=== PATIENT | female | born 1955 | race Caucasian/White ===

== ENCOUNTER → 2016-11-12 | Outpatient (CLI) | payer OTHER, BC ==
[~2016-11-12] MED LIST: HYDR1TAB PO; METH4TAB PO
--- OUTSIDE RECORDS SUMMARY | 2016-11-12 16:12 | XMS REPORT ---
Author Author TAYLOR JAMA [facility] eClinicalWorks Address Unknown Phone Unavailable Care Team Providers Care Manager Electrical Name Role Phone TAYLOR JAMA CP Unavailable Allergies No Known Allergies Problems Problem Type Condition Code Onset Dates Condition Status Assessment Encounter for immunization Z23 Active Problem ZOSTAVAX DX V05.8 Active Problem Impetigo 684 Active Problem Contact dermatitis and other eczema, due to unspecified cause 692.9 Active Problem Need for prophylactic vaccination and inoculation, Influenza V04.81 Active Problem DTAP TEST V06.1 Active Problem Dysfunction of Eustachian tube 381.81 Active Problem Obstructive chronic bronchitis, with (acute) exacerbation 491.21 Active Medications No Known Medications Procedures Procedure Coding System Code Date SINGLE IMMUNIZATION ADMIN CPT-4 59362 Jul 11, 2016 FLUARIX QUAD P-FREE 3 AND UP .50 2015 CPT-4 81100 Jul 11, 2016 Results No Known Results Immunizations Vaccine Administration Date FLUARIX QUAD P-FREE 3 AND UP .50 2015Jul 11, 2016 Summary Purpose eClinicalWorks Submission
--- NOTE | 2016-11-12 16:35 | Diagnostic Imaging Report ---
Left shoulder INDICATION: Injury, shoulder pain. Three views were obtained. FINDINGS: There is no fracture, dislocation, or acute bony abnormality evident. There is moderate degenerative disease of the acromioclavicular joint and the glenohumeral joint. There is also mild sclerosis of the greater tuberosity of the humerus. The soft tissues are unremarkable. IMPRESSION: 1. There is no evidence for an acute bony abnormality. 2. If there is clinical concern regarding an injury to the rotator cuff or labrum, then MRI should be considered for further study. Dictated by: Dictated on workstation # [id number]
== END ==
LOC: RAD 16:08
PROVIDERS: ATTEND Family Medicine
DX: M25.512 Pain in left shoulder (principal)
CPT/HCPCS: 73030

== ENCOUNTER 2017-02-06 16:26 | Outpatient (RCR) | payer OTHER, BC | END 2017-02-23 | disposition home or self-care (01) | PROVIDERS: ATTEND Family Medicine | DX: M25.512 Pain in left shoulder (principal); V87.7XXA Person injured in collision between other specified motor vehicles (traffic), initial encounter; Y99.8 Other external cause status ==

== ENCOUNTER 2017-12-14 17:03 | Emergency (ER) | payer BC ==
[~2017-12-14] VITALS: Ht 172.7 cm; Wt 95.3 kg
--- OUTSIDE RECORDS SUMMARY | 2017-12-14 17:09 | XMS REPORT ---
Author Author TAYLOR JAMA [facility] eClinicalWorks Address Unknown Phone Unavailable Care Team Providers Care Patient Experience Coordinator Name Role Phone TAYLOR JAMA CP Unavailable Allergies No Known Allergies Problems Problem Type Condition Code Onset Dates Condition Status Assessment Need for Tdap vaccination Z23 Active Problem ZOSTAVAX DX V05.8 Active [...] System Code Date SINGLE IMMUNIZATION ADMIN CPT-4 69435 Aug 08, 2015 TDAP (BOOSTRIX) CPT-4 35479 Aug 08, 2015 Results No Known Results Immunizations Vaccine Administration Date TDAP (BOOSTRIX) Aug 08, 2015 Summary Purpose eClinicalWorks Submission
--- OUTSIDE RECORDS SUMMARY | 2017-12-14 17:09 | XMS REPORT ---
Author Author TAYLOR JAMA Organization eClinicalWorks Address Unknown Phone Unavailable Care Team Providers Care Basketball Commentator Name Role Phone TAYLOR JAMA CP Unavailable Allergies No Known Allergies Problems Problem Type Condition Code Onset Dates Condition Status Problem ZOSTAVAX DX V05.8 Active Problem Impetigo 684 Active Problem Contact dermatitis and other eczema, due to unspecified cause 692.9 Active Problem Need for prophylactic vaccination and inoculation, Influenza V04.81 Active Problem DTAP TEST V06.1 Active Problem Dysfunction of Eustachian tube 381.81 Active Problem Obstructive chronic bronchitis, with (acute) exacerbation 491.21 Active Medications No Known Medications Results No Known Results Summary Purpose eClinicalWorks Submission
--- OUTSIDE RECORDS SUMMARY | 2017-12-14 17:09 | XMS REPORT ---
Author Author JENNIFER WALLACE [facility] Address [address] [place] [address] Care Team Providers Care Service Superintendent Name Role Phone JENNIFER WALLACE Unavailable PROBLEMS Type Condition ICD9-CM Code KOO27-PH Code Onset Dates Condition Status SNOMED Code Problem Obstructive chronic bronchitis, with (acute) exacerbation 491.21 Active 014971538 ALLERGIES Substance Reaction Event Type Date Status N.K.D.A. Unknown Non Drug Allergy Oct, Unknown SOCIAL HISTORY No smoking Hx information available PLAN OF CARE VITAL SIGNS MEDICATIONS Unknown Medications RESULTS No Results PROCEDURES No Known procedures IMMUNIZATIONS No Known Immunizations
--- OUTSIDE RECORDS SUMMARY | 2017-12-14 17:09 | XMS REPORT ---
Author Author TAYLOR JAMA [facility] eClinicalWorks Address Unknown Phone Unavailable Care Team Providers Care Principal Architectural Firm Name Role Phone TAYLOR JAMA Unavailable Allergies No Known Allergies Problems Problem [...] System Code Date SINGLE IMMUNIZATION ADMIN CPT-4 45003 Jul 25, 2015 FLUARIX QUAD (3 & UP)-GSK-2014 CPT-4 16622 Jul 25, 2015 Results No Known Results Immunizations Vaccine Administration Date FLUARIX QUAD (3 & UP)-GSK-2014Jul 25, 2015 Summary Purpose eClinicalWorks Submission
--- OUTSIDE RECORDS SUMMARY | 2017-12-14 17:09 | XMS REPORT ---
Author Author JC ERVIN Organization [facility] Address [address] [place] [address] Care Team Providers Care Physics Department Chair Name Role Phone HANG ERVINNETTE Unavailable PROBLEMS Type Condition ICD9-CM Code [id number] Code Onset Dates Condition Status SNOMED Code Problem Obstructive chronic bronchitis, with (acute) exacerbation 491.21 Active [id number] ALLERGIES Substance Reaction Event Type Date Status N.K.D.A. Unknown Non Drug Allergy Jul, Unknown SOCIAL HISTORY No smoking Hx information available PLAN OF CARE Activity Details Follow Up 1 Week, prn Reason:ankle pain VITAL SIGNS Height 68 in 2016-07-20 Weight 215 lbs 2016-07-20 Temperature 98.2 degrees Fahrenheit 2016-07-20 Heart Rate 84 bpm 2016-07-20 Respiratory Rate 18 2016-07-20 BMI 32.69 kg/m2 2016-07-20 Blood pressure systolic 124 mmHg 2016-07-20 Blood pressure diastolic 70 mmHg 2016-07-20 MEDICATIONS Unknown Medications RESULTS Name Result Date Reference Range Xray : Ankle, Left, 3 views (IN HOUSE) 2016-07-20 PROCEDURES Procedure Date Ordered Related Diagnosis Body Site X-RAY EXAM OF ANKLE Jul 20, 2016 Office Visit, Est Pt., Level 3 Jul 20, 2016 IMMUNIZATIONS No Known Immunizations
--- OUTSIDE RECORDS SUMMARY | 2017-12-14 17:09 | XMS REPORT ---
Author Author TAYLOR JAMA [facility] Address [address] [place] [address] Care Team Providers Care Electroplating Sales Representative Name Role Phone PITO JAMAYL Unavailable PROBLEMS Type Condition ICD9-CM Code [id number] Code Onset Dates Condition Status SNOMED Code Problem Obstructive chronic bronchitis, with (acute) exacerbation 491.21 Active 161451828 Assessment Acute non-recurrent maxillary sinusitis J01.00 Sep, Active 87949184 Assessment Bronchitis J40 Sep, Active 20534036 ALLERGIES Substance Reaction Event Type Date Status N.K.D.A. Unknown Non Drug Allergy Sep, Unknown SOCIAL HISTORY No smoking Hx information available PLAN OF CARE VITAL SIGNS Height 68 in 2016-09-19 Weight 212.8 lbs 2016-09-19 Heart Rate 83 bpm 2016-09-19 Respiratory Rate 16 2016-09-19 BMI 32.35 kg/m2 2016-09-19 Blood pressure systolic 111 mmHg 2016-09-19 Blood pressure diastolic 64 mmHg 2016-09-19 MEDICATIONS Medication Instructions Dosage Frequency Start Date End Date Duration Status Bactrim DS 800-160 MG Orally Twice a day 1 tablet 12h Sep,Sep 10 day(s) Active Triamcinolone Acetonide 0.1 % Externally Twice a day 1 application to affected area 12h Mar, Active Advair HFA 115-21 MCG/ACT Inhalation Twice a day Rinse mouth after use 2 puffs Sep, 10 days Active PredniSONE 10 mg Orally as directed 6 tabs first 2 days, then 5 tabs next 2 days, then 4 tabs x 2 days, 3 tabs x 2 days, 2 tabs x 2 days, 1 tab x2 days Mar, Active RESULTS No Results PROCEDURES Procedure Date Ordered Related Diagnosis Body Site DEPO MEDROL 80 MG/ML Sep 19, 2016 THER/PROPH/DIAG INJ, SC/IM Sep 19, 2016 Office Visit, Est Pt., Level 3 Sep 19, 2016 IMMUNIZATIONS Vaccine Route Administration Date Status DEPO MEDROL 80 MG/ML IM Intramuscular Sep 19, 2016 Administered
--- OUTSIDE RECORDS SUMMARY | 2017-12-14 17:09 | XMS REPORT ---
Author Author TAYLOR JAMA [facility] eClinicalWorks Address Unknown Phone Unavailable Care Team Providers Care Custodial Maintenance Worker Name Role Phone TAYLOR JAMA CP Unavailable [...] System Code Date SINGLE IMMUNIZATION ADMIN CPT-4 61009 Jul 11, 2016 FLUARIX QUAD P-FREE 3 AND UP .50 2015 CPT-4 44269 Jul 11, 2016 Results No Known Results Immunizations Vaccine Administration Date FLUARIX QUAD P-FREE 3 AND UP .50 2015Jul 11, 2016 Summary Purpose eClinicalWorks Submission
--- OUTSIDE RECORDS SUMMARY | 2017-12-14 17:09 | XMS REPORT ---
Author Author SRIDEVI PAGE Organization eClinicalWorks Address Unknown Phone Unavailable Care Team Providers Care Floor Worker [place] Name Role Phone SRIDEVI PAGE CP Unavailable Allergies, Adverse Reactions, Alerts Substance Reaction Event Type N.K.D.A. Info Not Available Non Drug Allergy Problems Problem Type Condition Code Onset Dates Condition Status Assessment Shingles B02.9 Active Problem ZOSTAVAX DX V05.8 Active Problem Impetigo 684 Active Problem Contact dermatitis and other eczema, due to unspecified cause 692.9 Active Problem Need for prophylactic vaccination and inoculation, Influenza V04.81 Active Problem DTAP TEST V06.1 Active Problem Dysfunction of Eustachian tube 381.81 Active Problem Obstructive chronic bronchitis, with (acute) exacerbation 491.21 Active Medications Medication Code System Code Instructions Start Date End Date Status Dosage Nasonex [facility] [address]-12 50 MCG/ACT Nasally Once a day Dec 15, 2015 2 sprays in each nostril Acyclovir [facility] [address]-20 800 MG Orally 5 times per day February 02, 2016 1 tablet Mucinex [facility] [address]-25 600 mg December 26, 2014 1-2 tablet by Oral route every 12 hours PRN with plenty of water Procedures Procedure Coding System Code Date Office Visit, Est Pt., Level 3 CPT-4 98555 February 02, 2016 Vital Signs Date/Time: February 02, 2016 Temperature 97.9 F Weight 215.8 lbs Height 68 in BMI 32.81 Index Blood Pressure Diastolic 84 mmHg Blood Pressure Systolic 112 mmHg Cardiac Monitoring Heart Rate 80 bpm Results No Known Results Summary Purpose eClinicalWorks Submission
--- OUTSIDE RECORDS SUMMARY | 2017-12-14 17:10 | XMS REPORT | Continuity of Care Document ---
Author Author [facility] Address Unknown Phone Unavailable Allergies There is no data. Medications There is no data. Problems Date Dx Coded Attending Type Code Diagnosis Diagnosed By 08/27/2010 RAJOTTE CUT IN STATION OPERATOR, TAYLOR A 461.9 SINUSITIS ACUTE 08/27/2010 RAJOTTE CUT IN STATION OPERATOR, TAYLOR A 786.2 COUGH 08/27/2010 461.9 SINUSITIS ACUTE 08/27/2010 786.2 COUGH 08/27/2010 YISEL DELEON TERRI S 461.9 SINUSITIS ACUTE 08/27/2010 YISEL CUT IN STATION OPERATOR, TERRI S 786.2 COUGH 08/27/2010 RAJOTTE CUT IN STATION OPERATOR, TAYLOR A 461.9 SINUSITIS ACUTE 08/27/2010 RAJOTTE CUT IN STATION OPERATOR, TAYLOR A 786.2 COUGH 12/03/2010 RAJOTTE CUT IN STATION OPERATOR, TAYLOR A 465.9 UPPER RESPIRATORY INFECTION 12/03/2010 465.9 UPPER RESPIRATORY INFECTION 12/03/2010 YISEL DELEON TERRI S 465.9 UPPER RESPIRATORY INFECTION 12/03/2010 RAJOTTE CUT IN STATION OPERATOR, TAYLOR A 465.9 UPPER RESPIRATORY INFECTION 02/20/2011 RAJOTTE CUT IN STATION OPERATOR, TAYLOR A 466.0 ACUTE BRONCHITIS 02/20/2011 466.0 ACUTE BRONCHITIS 02/20/2011 CATHERINE MORILLO APRNNDA S 466.0 ACUTE BRONCHITIS 02/20/2011 RAJOTTE CUT IN STATION OPERATOR, TAYLOR A 466.0 ACUTE BRONCHITIS 04/22/2011 RAJOTTE CUT IN STATION OPERATOR, TAYLOR A 692.6 CONTACT DERMATITIS AND OTHER ECZEMA DUE TO PLANTS (EXCEPT FOOD) 04/22/2011 692.6 CONTACT DERMATITIS AND OTHER ECZEMA DUE TO PLANTS (EXCEPT FOOD) 04/22/2011 CATHERINE MORILLO APRNNDA S 692.6 CONTACT DERMATITIS AND OTHER ECZEMA DUE TO PLANTS (EXCEPT FOOD) 04/22/2011 RAJOTTE CUT IN STATION OPERATOR, TAYLOR A 692.6 CONTACT DERMATITIS AND OTHER ECZEMA DUE TO PLANTS (EXCEPT FOOD) 05/29/2011 EVITA DELEON TAYLOR A V70.0 GENERAL MEDICAL EXAM, ROUTINE, AT HEALTH CARE FACILITY 05/29/2011 V70.0 GENERAL MEDICAL EXAM, ROUTINE, AT HEALTH CARE FACILITY 05/29/2011 TERRI MORILLO APRN S V70.0 GENERAL MEDICAL EXAM, ROUTINE, AT HEALTH CARE FACILITY 05/29/2011 TAYLOR JAMA APRN A V70.0 GENERAL MEDICAL EXAM, ROUTINE, AT HEALTH CARE FACILITY 05/30/2011 EVITA DELEON TAYLOR A 272.4 HYPERLIPIDEMIA 05/30/2011 272.4 HYPERLIPIDEMIA 05/30/2011 TERRI MORILLO APRN S 272.4 HYPERLIPIDEMIA 05/30/2011 EVITA DELEON TAYLOR A 272.4 HYPERLIPIDEMIA 02/18/2012 EVITA DELEON TAYLOR A 692.9 DERMATITIS CONTACT UNSPECIFIED 02/18/2012 692.9 DERMATITIS CONTACT UNSPECIFIED 02/18/2012 TERRI MORILLO APRN S 692.9 DERMATITIS CONTACT UNSPECIFIED 02/18/2012 EVITA DELEON TAYLOR A 692.9 DERMATITIS CONTACT UNSPECIFIED 08/16/2012 EVITA DELEON TAYLOR A V04.81 FLU DX (3 YRS AND ABOVE, IM) 08/16/2012 EVITA DELEON TAYLOR A V06.1 TDAP DX 08/16/2012 V04.81 FLU DX (3 YRS AND ABOVE, IM) 08/16/2012 V06.1 TDAP DX 08/16/2012 TERRI MORILLO APRN S V04.81 FLU DX (3 YRS AND ABOVE, IM) 08/16/2012 JUAN MORILLO APRNA S V06.1 TDAP DX 08/16/2012 NELLIESAMARA DELEON TAYLOR A V04.81 FLU DX (3 YRS AND ABOVE, IM) 08/16/2012 EVITA DELEON TAYLOR A V06.1 TDAP DX 09/06/2012 EVITA DELEON TAYLOR A 491.21 BRONCHITIS AECB 09/06/2012 491.21 BRONCHITIS AECB 09/06/2012 TERRI MORILLO APRN S 491.21 BRONCHITIS AECB 09/06/2012 RAJTAYLOR PASCUAL APRN 491.21 BRONCHITIS AECB 09/20/2012 TAYLOR JAMA APRN V05.8 ZOSTAVAX DX 09/20/2012 V05.8 ZOSTAVAX DX 09/20/2012 TERRI MORILLO APRN V05.8 ZOSTAVAX DX 09/20/2012 TAYLOR JAMA APRN V05.8 ZOSTAVAX DX 09/27/2013 TERRI MORILLO APRN 684 IMPETIGO 09/27/2013 TAYLOR JAMA APRN 684 IMPETIGO Procedures Code [place] [address] NEBULIZER TREATMENT 11/26/2012 41120 OXIMETRY 11/26/2012 J7613 ALBUTEROL UNIT DOSE FORM INHALED 11/26/2012 Results There is no data. Encounters ACCT No. Visit Date/Time Discharge Status Pt. Type Provider Facility Loc./Unit Complaint [id number] 08/04/2014 12:29:00 08/04/2014 23:59:59 CLS Outpatient TAYLOR JAMA APRN [id number] 09/27/2013 11:04:00 09/27/2013 23:59:59 CLS Outpatient TERRI MORILLO APRN [id number] 11/26/2012 11:24:00 11/26/2012 23:59:59 CLS Outpatient [id number] 09/06/2012 15:02:00 09/06/2012 23:59:59 CLS Outpatient TAYLOR JAMA APRN
--- NOTE | 2017-12-14 17:51 | ED Lower Extremity ---
General Chief Complaint: Lower Extremity Stated Complaint: LEFT KNEE INJ Nursing Triage Note: PT TO ED W/ C/O LT KNEE PAIN, CHRONIC, WORSE TODAY AFTER TWISTING KNEE WHILE THROWING OUT TRASH AT SCHOOL. Nursing Sepsis Screen: No Definite Risk Source: patient Exam Limitations: no limitations History of Present Illness Date Seen by Provider: Dec 14, 2017 Time Seen by Provider: 17:50 Initial Comments To ER with some chronic right knee pain. However today while at school she was taking out the trash and twisted wrong sudden onset of severe left knee pain that prohibits her from bearing weight on it. She is unable to fully extend the knee. She does not now or at any time that she can recall have deformity to the knee. She does not have a primary care provider since Dr. Fonseca left. She works at [employer] and does see Rizwana Andrews from the [employer] [facility]anch Onset: this afternoon Severity: moderate Pain/Injury Location: left leg Method of Injury: twisted Modifying Factors: Worse With Movement Allergies and Home Medications Allergies Coded Allergies: No Known Drug Allergies (Unverified , 02/21/12) Home Medications Hydrocodone Bit/Acetaminophen 1 Each Tablet, 1 EACH PO Q4HR PRN Prescribed by: DARCY JHAVERI MD on 02/21/122137 Constitutional: see HPI EENTM: see HPI Respiratory: no symptoms reported Cardiovascular: no symptoms reported Genitourinary: no symptoms reported Musculoskeletal: see HPI Skin: no symptoms reported Psychiatric/Neurological: No Symptoms Reported Past Ijzwlun-Vnkbvn-Qpeeqf Hx Patient Social History Alcohol Use: Denies Use Recreational Drug Use: No Smoking Status: Never a Smoker Recent Foreign Travel: No Contact w/Someone Who Travel: No Recent Infectious Disease Expo: No Immunizations Up To Date Date of Influenza Vaccine: Jul 31, 2011 Surgeries History of Surgeries: No Respiratory History of Respiratory Disorde: No Cardiovascular History of Cardiac Disorders: No Neurological History of Neurological Disord: No Genitourinary History of Genitourinary Disor: No Gastrointestinal History of Gastrointestinal Di: No Musculoskeletal History of Musculoskeletal Dis: No Endocrine History of Endocrine Disorders: No HEENT History of HEENT Disorders: No Cancer History of Cancer: No Psychosocial History of Psychiatric Problem: No Integumentary History of Skin or Integumenta: No Blood Transfusions History of Blood Disorders: No Physical Exam Vital Signs Vital Signs - First Documented 12/14/17 17:33 Temp 97.9 Pulse 93 Resp 20 B/P (MAP) 140/112 (121) Pulse Ox 99 Capillary Refill : Less Than 3 Seconds General Appearance: WD/WN, no apparent distress HEENT: PERRL/EOMI, normal ENT inspection Neck: non-tender, full range of motion Respiratory: normal breath sounds, no respiratory distress, no accessory muscle use Gastrointestinal: normal bowel sounds, non tender Hips: bilateral hip non-tender, bilateral hip normal inspection, bilateral hip normal range of motion Legs: bilateral leg non-tender, bilateral leg normal inspection, bilateral leg normal range of motion Knees: left knee pain, left knee other (limited range of motion but without erythema ecchymosis or deformity) Ankles: bilateral ankle non-tender, bilateral ankle normal inspection, bilateral ankle normal range of motion Feet: bilateral foot non-tender, bilateral foot normal inspection, bilateral foot normal range of motion Neurologic/Psychiatric: alert, normal mood/affect, oriented x 3 Skin: normal color, warm/dry Progress/Results/Core Measures Results/Orders My Orders Orders - PAULA ORTEGA APRN Knee, Left, 3 Views (12/14/17 17:36) Hydrocodone/Apap 5/325 Tablet (Lortab 5 (12/14/17 18:45) Immobilizer Knee St 19 Inch (12/14/17 18:35) Vital Signs/I&O Vital Sign - Last 12Hours 12/14/17 17:33 Temp 97.9 Pulse 93 Resp 20 B/P (MAP) 140/112 (121) Pulse Ox 99 Blood Pressure Mean: 121 Departure Impression Impression: Primary Impression: Internal derangement of knee Disposition: 01 HOME, SELF-CARE Condition: Stable Departure-Patient Inst. Decision time for Depature: 18:36 Referrals: JOESPH CHIRINOS MD (PCP) Primary Care Physician Patient Instructions: Internal Derangement of the Knee Add. Discharge Instructions: 1. Wear the knee immobilizer when you're up putting weight on the leg. Motrin or naproxen in addition to the prescribed pain medication for pain control. All discharge instructions reviewed with patient and/or family. Voiced understanding. Scripts Hydrocodone/Acetaminophen ([place] [employer] 5-325 Tablet) 1 Each Tablet 1 EACH PO Q4H Y for PAIN-MODERATE TO SEVERE, #14 TAB Prov: PAULA ORTEGA APRN 12/14/17 Work/School Note: Work Release Form Date Seen in the Emergency Department: Dec 14, 2017 Return to Work: Dec 14, 2017 Other Restrictions Listed Below: May use wheelchair or crutches for one week Copy Copies To 1: BRITTANI FREEMAN PETER J APRN Dec 14, 2017 17:51
--- NOTE | 2017-12-14 18:25 | Diagnostic Imaging Report ---
EXAMINATION: Left knee radiographs, 3 views. COMPARISON: None. HISTORY: 62-year-old female, twisting injury of left knee. Left knee pain. FINDINGS: There is no identified knee joint effusion. There is very mild degenerative type enthesophyte formation at the insertion of the distal quadriceps tendon. The joint spaces appear well preserved. There is no prominent osteophyte formation. There is no identified acute fracture or dislocation. There is no identified radiopaque foreign body. IMPRESSION: 1. No identified acute bony abnormality of the left knee. 2. Mild degenerative type enthesopathy at the distal quadriceps tendon insertion. Dictated by: Dictated on workstation # [id number]
[2017-12-14] MEDS ORDERED: HYDR-757 PO (18:38)
[2017-12-14 18:42] VITALS: BP 120/85
[2017-12-14] MEDS ORDERED: HYDROcodone/APAP 5 MG/325 MG (LORTAB) TAB PO ONE (18:45)
== END 2017-12-14 18:52 | disposition home or self-care (01) ==
LOC: EDUNIT# 17:03 → ER 17:05
DX: M23.92 Unspecified internal derangement of left knee (principal); X50.0XXA Overexertion from strenuous movement or load, initial encounter; Y92.219 Unspecified school as the place of occurrence of the external cause
CPT/HCPCS: 73562

== ENCOUNTER → 2017-12-21 | Outpatient (CLI) | payer BC ==
[~2017-12-21] MED LIST changes: +HYDR-757 PO
--- NOTE | 2017-12-22 07:50 | Diagnostic Imaging Report ---
PROCEDURE: MRI left joint lower extremity without contrast. TECHNIQUE: Multiplanar, multisequence non contrast-enhanced MRI of the left lower extremity was accomplished. INDICATION: Knee pain. FINDINGS: The anterior cruciate ligament is intact. There is some increased signal intensity within the posterior cruciate ligament compatible with myxoid degeneration. Both the superficial and deep components of medial collateral ligament are intact. The biceps femoris, tibial collateral and iliotibial band are intact. There is some intrasubstance myxoid degeneration within the posterior horn of the medial meniscus. The anterior horn of the medial meniscus is intact. The lateral meniscus is normal in signal intensity and morphology. The patellar tendon and quadriceps tendons are intact. There is a small knee joint effusion. The articular cartilage of the patella is well-maintained. The articular cartilage in the medial and lateral knee joint compartments is relatively well-maintained. There are no areas of underlying marrow edema. There appears to be a multiloculated ganglion along the metaphysis of the femur medially. There is also small popliteal cyst. 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 Small knee joint effusion. Multiloculated ganglion along the medial aspect of the femur near the metaphysis. Additionally, there is a small popliteal cyst. Dictated by: Dictated on workstation # [id number]
== END ==
LOC: RAD 17:19
PROVIDERS: ATTEND Nurse Practitioner Family
DX: M23.8X2 Other internal derangements of left knee (principal); M71.22 Synovial cyst of popliteal space [Baker], left knee; M25.462 Effusion, left knee
CPT/HCPCS: 73721

== ENCOUNTER → 2019-08-05 | Outpatient (CLI) | payer BC ==
[~2019-08-05] MED LIST changes: +HYDR-4226 PO; -HYDR-757 PO
--- NOTE | 2019-08-08 10:29 | Diagnostic Imaging Report ---
Indication: Routine screening. No prior mammograms are available for comparison. 2-D and 3-D bilateral screening mammography was performed with CAD. Scattered fibroglandular densities are identified bilaterally. There are tiny benign-appearing nodules in both breasts. There are benign calcifications as well. No spiculated mass or malignant-appearing microcalcifications are seen. Axillae are unremarkable. IMPRESSION: BI-RADS Category 2 No mammographic features suspicious for malignancy are identified. ACR BI-RADS Category 2: Benign findings. Result letter will be mailed to the patient. Note: At least 10% of breast cancer is not imaged by mammography. Dictated by: Dictated on workstation # [id number]
== END ==
LOC: RAD 15:35
PROVIDERS: ATTEND Pediatrics
DX: Z12.31 Encounter for screening mammogram for malignant neoplasm of breast (principal)
CPT/HCPCS: 77067

== ENCOUNTER → 2021-04-29 | Outpatient (CLI) | payer BC ==
[~2021-04-29] MED LIST changes: +RT-ALBUTEROL SULF 2.5 MG/3 ML PRE-MIX VIAL INH ONE
== END ==
LOC: RT 15:37
PROVIDERS: ATTEND Nurse Practitioner Family
DX: R05 Cough (principal); R06.02 Shortness of breath
CPT/HCPCS: 94060; 94726; 94729